=== PATIENT | male | born 1960 | race Caucasian/White ===

== ENCOUNTER 2016-09-16 01:33 | Emergency (ER) | payer OTHER ==
[~2016-09-16] VITALS: Ht 185.4 cm; Wt 87.3 kg
[~2016-09-16 01:33] MED LIST: ADVANCED EYE RE BOTH EYES; ASPIR 8181 M1 PO; BENADRYL25 MG PO; CLONAZEPAM0.5 MG PO; COLACE100 MG PO; COMBIGAN O20 DROP/5 BOTH EYES; CYANOCOBALAM1000 MCG PO; Colace PO; DIAZEPAM5 MG PO; DORZOLAMIDE HCL10 ML BOTH EYES; Dulcolax PO; ESCITALOPRAM OX10 MG PO; FLOMAX0.4 MG PO; FLONASE16 G1 BOTH NARES; GABAPENTIN100 MG PO; GABAPENTIN300 MG PO; GEODON40 MG PO; GEODON60 MG PO; GEODON80 MG PO; KLONOPIN0.5 M1 PO; LATANOPROST2.5 ML BOTH EYES; LIDOCAINE-PRIL1 EACH TP; LINZESS145 MCG PO; LO-DOSE ASPIRIN81 M1 PO; LOTEMAX5 ML OP; LOTEMAX5 ML RIGHT EYE; LUMIGAN 0.50 DROP/22 BOTH EYES; MIRALAX17 GM PO; NEURONTIN100 MG PO; NEURONTIN300 MG PO; Non-Formulary PO; OMEPRAZOLE20 MG PO; POLYETHYLENE G255 GM PO; PRILOSEC20 MG PO; RISEDRONATE SOD35 M1 PO; SENNA LAX8.6 MG PO; SYNTHROID25 MCG PO; TAMSULOSIN HCL0.4 MG PO; TOBRAMYCIN SULFA5 ML LEFT EYE; TRUSOPT5 ML BOTH EYES; VALIUM5 MG PO; VITAMIN B-1100 MG PO; VITAMIN B-6100 MG PO; VITAMIN D-32000 UNI2 PO; VITAMIN D31000 UNI2 PO; VITAMIN D31000 UNIT PO; ZANTAC150 MG PO; ZANTAC300 MG PO; ZYLET EYE DROPS10 ML RIGHT EYE; [UNRECOGNIZED DRUG - OTHER] TP
[2016-09-16] MEDS ORDERED: ANAPROX DS550 M1 PO (02:04)
[2016-09-16 02:25] VITALS: BP 145/91
== END 2016-09-16 02:26 | disposition home or self-care (01) ==
LOC: EME 01:33
DX: T14.8 Other injury of unspecified body region (principal); R51 Headache; M54.2 Cervicalgia; Y04.8XXA Assault by other bodily force, initial encounter; Y07.04 Female partner, perpetrator of maltreatment and neglect
CPT/HCPCS: 99281; 99283

== ENCOUNTER 2016-11-20 02:05 | Emergency (ER) | payer OTHER ==
[~2016-11-20] VITALS: Ht 185.4 cm; Wt 90.8 kg
[~2016-11-20 02:05] MED LIST changes: +ANAPROX DS550 M1 PO
[2016-11-20 02:08] VITALS: BP 121/87
== END 2016-11-20 02:40 | disposition home or self-care (01) ==
LOC: EME 02:05
DX: J33.0 Polyp of nasal cavity (principal); Z88.8 Allergy status to other drugs, medicaments and biological substances; F17.200 Nicotine dependence, unspecified, uncomplicated

== ENCOUNTER 2016-12-24 16:16 | Emergency (ER) | payer OTHER ==
[~2016-12-24] VITALS: Ht 185.4 cm; Wt 92.8 kg
[2016-12-24 17:05] LABS: MCH 30.4 PG (29.0-34.0); MCV 95.1 FL (86-99); MEAN PLAT.VOLUME 8.3 uM^3 (9.0-12.4); PLATELET COUNT 216 K/uL (156-360); RBC DIS.WIDTH-SD 45.7 % (39-53); RED BLOOD COUNT 4.73 M/uL (4.00-5.50); WHITE BLOOD COUNT 7.6 K/uL (4.1-10.2)
[2016-12-24 17:16] LABS: CHLORIDE 105 mEq/L (99-109); POTASSIUM 4.4 mEq/L (3.7-5.4); SODIUM 140 mEq/L (136-147)
[2016-12-24 17:18] LABS: GLUCOSE 89 mg/dL (70-99)
[2016-12-24 17:19] LABS: ANION GAP 8 MEQ/L (2-14)
[2016-12-24 17:22] LABS: GFR ESTIMATE (CALCULATED) > 59 mL/min/
[2016-12-24 17:23] LABS: UREA NITROGEN (BUN) 21 mg/dL (9-23)
[2016-12-24 17:25] LABS: TROP-I INTERPRETATION NEGATIVE; TROPONIN-I < 0.01 ng/mL (0.0-0.30)
[2016-12-24 18:15] VITALS: BP 150/67
== END 2016-12-24 18:18 | disposition home or self-care (01) ==
LOC: EME 16:16
PROVIDERS: Emergency Medicine
DX: R20.2 Paresthesia of skin (principal); R51 Headache; F20.9 Schizophrenia, unspecified; Z79.82 Long term (current) use of aspirin; F17.200 Nicotine dependence, unspecified, uncomplicated
CPT/HCPCS: 70450; 80048; 83735; 84484; 85027; 93005; 99281; 99284

== ENCOUNTER 2018-03-17 22:34 | Emergency (ER) | payer OTHER ==
[~2018-03-17] VITALS: Ht 185.4 cm; Wt 87.2 kg
[2018-03-17 22:39] VITALS: BP 140/86
== END 2018-03-18 00:38 | disposition home or self-care (01) ==
LOC: EME 22:34
DX: B80 Enterobiasis (principal); F20.9 Schizophrenia, unspecified
CPT/HCPCS: 99281; 99283

== ENCOUNTER 2018-04-06 18:51 | Emergency (ER) | payer OTHER ==
[~2018-04-06] VITALS: Ht 185.4 cm; Wt 86.7 kg
[2018-04-06 19:49] LABS: APPEARANCE CLEAR ((CLEAR)); BILIRUBIN NEGATIVE; BLOOD NEGATIVE; COLOR COLORLESS ((YELLOW)); GLUCOSE (STRIP) NEGATIVE; KETONES NEGATIVE; LEUKOCYTES NEGATIVE; NITRITE NEGATIVE; PROTEIN (STRIP) NEGATIVE; SPECIFIC GRAVITY 1.008 (1.000-1.030); UCUL ADDED? NO; UROBILINOGEN 0.2 MG/DL (0.2-1.0)
[2018-04-06 20:46] VITALS: BP 149/70
== END 2018-04-06 20:47 | disposition home or self-care (01) ==
LOC: EME 18:51
PROVIDERS: Nurse Practitioner Family
DX: F43.9 Reaction to severe stress, unspecified (principal); F20.9 Schizophrenia, unspecified; Z86.19 Personal history of other infectious and parasitic diseases; F41.9 Anxiety disorder, unspecified; F17.200 Nicotine dependence, unspecified, uncomplicated
CPT/HCPCS: 81003; 99281; 99284